=== PATIENT | female | born 1985 | race Two or more races ===

== ENCOUNTER → 2017-10-01 | Outpatient (REF) | payer OTHER | LOC: M LAB REF 17:30 | DX: Z12.4 Encounter for screening for malignant neoplasm of cervix (principal); R87.610 Atypical squamous cells of undetermined significance on cytologic smear of cervix (ASC-US) | CPT/HCPCS: G0123 ==

== ENCOUNTER → 2017-11-18 | Outpatient (REF) | payer OTHER | LOC: M LAB REF 18:50 | DX: L91.8 Other hypertrophic disorders of the skin (principal) ==

== ENCOUNTER → 2019-10-07 | Outpatient (REF) | payer OTHER | LOC: M SFHCADAM 13:23 | PROVIDERS: ATTEND Physician Assistant | DX: R19.7 Diarrhea, unspecified (principal) ==

== ENCOUNTER → 2020-04-04 | Outpatient (REF) | payer OTHER ==
[2020-04-04 13:52] LABS: FREE T4 1.12 NG/DL (0.76-1.46); THYROID STIMULATING HORMONE 0.826 uIU/ML (0.358-3.740)
== END ==
LOC: M SFHCADAM 08:33
PROVIDERS: ATTEND Family Medicine
DX: E04.1 Nontoxic single thyroid nodule (principal)

== ENCOUNTER → 2020-05-31 | Outpatient (REF) | payer OTHER | LOC: M SFHCWAGY 18:09 | PROVIDERS: ATTEND Specialist | DX: Z01.419 Encounter for gynecological examination (general) (routine) without abnormal findings (principal) ==

== ENCOUNTER → 2021-01-19 | Outpatient (CLI) | payer BC, OTHER ==
--- NOTE | 2021-01-23 08:34 | REP ---
INDICATION: THYROID NODULE COMPARISON: None. TECHNIQUE: Ndiaye scale and color evaluation of the thyroid gland using the linear high frequency transducer. FINDINGS: Right thyroid lobe measures 4.9 x 1.9 x 1.3 cm and includes 3 x 2 x 3 mm midpole cyst, 7.5 X 5 x 7 mm midpole complex cyst containing 5 mm solid nodule (which likely represents the previously identified 1.6 cm complex cyst on prior examination and has regressed in size), and 5 x 4 x 4 mm hypoechoic solid lower pole nodule. Isthmus measures 2.0 mm in width with a 7 x 4 x 5 mm hypoechoic nodule along the right lateral aspect. Left thyroid lobe measures 4.5 x 1.7 x 1.1 cm and includes 2 x 2 x 2 mm complex lower pole cyst. IMPRESSION: 1. The thyroid gland demonstrates few scattered relatively indeterminate small cysts and nodules measuring up to 7.5 mm maximal diameter which show varied appearance as compared with prior examination and not meeting TI-RADS criteria for biopsy. (Previously identified 1.6 cm right complex cyst may have regressed in size and is now consistent with the 7.5 mm complex cyst). 2. Consider 12 month follow-up examination. <Electronically signed by Al Ram > 01/23/21 0813
== END ==
LOC: M RAD 12:49
PROVIDERS: ATTEND Family Medicine
DX: E04.1 Nontoxic single thyroid nodule (principal)

== ENCOUNTER → 2024-02-11 | Outpatient (REF) | payer OTHER | LOC: M SFHCWAGY 13:05 | PROVIDERS: ATTEND Specialist | DX: Z01.419 Encounter for gynecological examination (general) (routine) without abnormal findings (principal) ==